=== PATIENT | female | born 1955 | race Caucasian/White ===

== ENCOUNTER 2017-02-11 10:30 | Emergency (ER) | payer OTHER ==
[~2017-02-11] VITALS: Ht 157.5 cm; Wt 61.2 kg
[2017-02-11 10:56] VITALS: BP 130/71
--- NOTE | 2017-02-11 11:47 | NUR ---
SHOULDER SLING PROVIDED. D/C HOME. STABLE CONDITION.
== END 2017-02-11 11:47 | disposition home or self-care (01) ==
LOC: ER 10:32
DX: S42.032A Displaced fracture of lateral end of left clavicle, initial encounter for closed fracture (principal); S09.90XA Unspecified injury of head, initial encounter; R51 Headache; J45.909 Unspecified asthma, uncomplicated; Z88.1 Allergy status to other antibiotic agents; W01.0XXA Fall on same level from slipping, tripping and stumbling without subsequent striking against object, initial encounter; Y99.8 Other external cause status; Y92.89 Other specified places as the place of occurrence of the external cause; Y93.89 Activity, other specified
CPT/HCPCS: 70450; 73030; 99284; A4606 ×2; A6402; Z7610 ×2

== ENCOUNTER 2020-05-09 18:34 | Emergency (ER) | payer OTHER, MEDICAID ==
[~2020-05-09] VITALS: Ht 157.5 cm; Wt 61.2 kg
[2020-05-09 18:56] VITALS: BP 137/94
--- NOTE | 2020-05-09 19:22 | NUR ---
PATIENT CAME TO ER BED 2 C/O FALLING AT HOME ON A ACCOUNTANT TAX ABOUT 1x HOUR AGO. PATIENT STATES THAT SHE FELL ON HER LEFT SIDE AND HIT HER HEAD ON A METAL OBJECT AT HOME. PATIENT HAS A RIGHT MEDIAL MATTA SWELLING AND LEFT ANABAPTISM SWELLING. PATIENT STATES THAT SHE ALSO HAS SHOULDER PAIN. PATIENT IS AAOX4. NO SOB .BREATHING EVENLY AND UNLABORED ON ROOM AIR. CONNECTED TO THE MONITOR.
--- NOTE | 2020-05-09 19:35 | NUR ---
PATIENT TAKEN TO CT.
[2020-05-09] MEDS ORDERED: ACETAMINOPHEN 325 MG TABLET ONE (19:51)
[2020-05-09] MEDS: ACETAMINOPHEN 325 MG TABLET PO ONE (19:59)
--- NOTE | 2020-05-09 20:57 | NUR ---
AMBULATORY WITH A STEADY GAIT.
--- NOTE | 2020-05-09 20:57 | NUR ---
Patient discharged to home in stable condition. Written and verbal after care instructions given. Patient verbalizes understanding of instruction.
== END 2020-05-09 20:59 | disposition home or self-care (01) ==
LOC: ER 18:34
DX: S00.03XA Contusion of scalp, initial encounter (principal); S80.11XA Contusion of right lower leg, initial encounter; S00.83XA Contusion of other part of head, initial encounter; S70.12XA Contusion of left thigh, initial encounter; M19.012 Primary osteoarthritis, left shoulder; J45.909 Unspecified asthma, uncomplicated; Z79.82 Long term (current) use of aspirin; Z88.1 Allergy status to other antibiotic agents; W01.0XXA Fall on same level from slipping, tripping and stumbling without subsequent striking against object, initial encounter; Y93.89 Activity, other specified; Y92.89 Other specified places as the place of occurrence of the external cause; Y99.8 Other external cause status
CPT/HCPCS: 70450-TC; 71045-TC; 73030-TC

== ENCOUNTER 2021-01-25 14:29 | Emergency (ER) | payer OTHER ==
[~2021-01-25] VITALS: Ht 157.5 cm; Wt 61.2 kg
--- NOTE | 2021-01-25 14:29 | NUR ---
PT BIB SELF C/O CHEST WALL AND KNEE PAIN S/P GLF YESTERDAY. PT IS AAOX4, NOT IN RESPIRATORY DISTRESS, V/S STABLE, KEPT RESTED AND COMFORTABLE. WILL CONTINUE TO MONITOR.
--- NOTE | 2021-01-25 14:59 | NUR ---
SEEN AND EXAMINED BY DR. ALMARAZ.
[2021-01-25 15:17] LABS: BASOPHILS % (AUTO) 0.8 % (0.0-2.0); EOSINOPHILS % (AUTO) 2.9 % (0.0-6.0); HEMATOCRIT 34 % (33-45); HEMOGLOBIN 11.3 g/dL (11.5-14.8); LYMPHOCYTES # (AUTO) 2.5 K/uL (0.8-4.8); LYMPHOCYTES % (AUTO) 43.1 % (20.0-44.0); MEAN CORPUSCULAR HGB CONC 34 g/dl (31.0-36.0); MEAN CORPUSCULAR VOLUME 88 fL (82-100); MONOCYTES # (AUTO) 0.5 K/uL (0.1-1.30); MONOCYTES % (AUTO) 8.6 % (2.0-12.0); NEUTROPHILS # (AUTO) 2.6 K/uL (1.8-8.9); NEUTROPHILS % (AUTO) 44.6 % (43.0-81.0); PLATELET COUNT (AUTO) 234 K/uL (150-450); WHITE BLOOD COUNT (AUTO) 5.8 K/uL (4.3-11.0)
[2021-01-25 15:25] LABS: CALCIUM, SERUM 8.6 mg/dL (8.5-10.1); CARBON DIOXIDE 27 mmol/L (21-32); CHLORIDE 107 mmol/L (98-107); CREATININE 0.8 mg/dL (0.6-1.3); GLUCOSE 131 mg/dL (74-106); POTASSIUM 3.7 mmol/L (3.5-5.1); SODIUM SERUM 143 mmol/L (136-145); UREA NITROGEN, BLOOD 12 mg/dL (7-18)
[2021-01-25 17:27] VITALS: BP 135/82
--- NOTE | 2021-01-25 17:27 | NUR ---
Patient discharged to home in stable condition. Written and verbal after care instructions given. Patient verbalizes understanding of instruction.
== END 2021-01-25 17:27 | disposition home or self-care (01) ==
LOC: ER 14:33
DX: S20.211A Contusion of right front wall of thorax, initial encounter (principal); S80.02XA Contusion of left knee, initial encounter; S80.01XA Contusion of right knee, initial encounter; R51.9 Headache, unspecified; D32.9 Benign neoplasm of meninges, unspecified; J45.909 Unspecified asthma, uncomplicated; Z88.1 Allergy status to other antibiotic agents; W01.0XXA Fall on same level from slipping, tripping and stumbling without subsequent striking against object, initial encounter; Y93.89 Activity, other specified; Y92.89 Other specified places as the place of occurrence of the external cause; Y99.8 Other external cause status
CPT/HCPCS: 36415; 70450-TC; 71045-TC; 80048-TC; 84484-TC; 85025-TC

== ENCOUNTER 2021-02-17 09:51 | Emergency (ER) | payer OTHER ==
[~2021-02-17] VITALS: Ht 157.5 cm; Wt 63.5 kg
--- NOTE | 2021-02-17 10:10 | NUR ---
TO ER BED 3, C/O LEFT SHOULDER AND LEFT HIP PAIN S/P FALL LAST TUESDAY, ALSO C/O NECK PAIN, AAOX4, BREATHING EVEN AND NON LABORED. AWAITING MD VERA
--- NOTE | 2021-02-17 11:49 | NUR ---
URINE COLLECTED AND SENT TO LAB
[2021-02-17 12:03] LABS: BILIRUBIN,URINE Negative (NEGATIVE); COLOR,URINE YELLOW (YELLOW); LEUKOCYTE ESTERASE ,URINE Negative (NEGATIVE); NITRITE, URINE Negative (NEGATIVE); PROTEIN,URINE Negative (NEGATIVE); UGLUCOSE Negative (NEGATIVE); UROBILINOGEN,URINE 0.2 EU/dL (0.2)
--- NOTE | 2021-02-17 12:24 | NUR ---
TAKEN TO CT
--- NOTE | 2021-02-17 12:54 | NUR ---
[employer] AT BEDSIDE
[2021-02-17] MEDS ORDERED: ONDANSETRON HCL/PF 4 MG/2 ML VIAL ONE (13:03)
[2021-02-17] MEDS ORDERED: MORPHINE SULFATE INJ 4 MG/ML DISP.SYRIN ONE (13:03)
[2021-02-17] MEDS: ONDANSETRON HCL/PF 4 MG/2 ML VIAL IVP ONE (13:09)
[2021-02-17] MEDS: MORPHINE SULFATE INJ 2 MG/ML DISP.SYRIN IV ONE (13:09)
[2021-02-17 13:11] LABS: BASOPHILS # (AUTO) 0.1 K/uL (0.0-0.2); EOSINOPHILS % (AUTO) 1.9 % (0.0-6.0); HEMATOCRIT 34 % (33-45); HEMOGLOBIN 11.6 g/dL (11.5-14.8); LYMPHOCYTES # (AUTO) 2.7 K/uL (0.8-4.8); LYMPHOCYTES % (AUTO) 40.2 % (20.0-44.0); MEAN CORPUSCULAR HGB CONC 34 g/dl (31.0-36.0); MEAN CORPUSCULAR VOLUME 90 fL (82-100); MONOCYTES # (AUTO) 0.6 K/uL (0.1-1.30); MONOCYTES % (AUTO) 8.4 % (2.0-12.0); NEUTROPHILS # (AUTO) 3.2 K/uL (1.8-8.9); NEUTROPHILS % (AUTO) 48.5 % (43.0-81.0); PLATELET COUNT (AUTO) 223 K/uL (150-450); RED BLOOD CELL COUNT(AUTO) 3.84 MIL/uL (4.0-5.2); WHITE BLOOD COUNT (AUTO) 6.6 K/uL (4.3-11.0)
[2021-02-17] MEDS ORDERED: KETOROLAC TROMETHAMINE INJ 30 MG/ML VIAL ONE (13:13)
[2021-02-17] MEDS: KETOROLAC TROMETHAMINE INJ 60 MG/2 ML VIAL IM ONE (13:17)
[2021-02-17 13:21] LABS: CALCIUM, SERUM 9.2 mg/dL (8.5-10.1); CREATININE 0.8 mg/dL (0.6-1.3); POTASSIUM 4.5 mmol/L (3.5-5.1)
[2021-02-17 13:26] LABS: ALBUMIN 3.7 g/dL (3.4-5.0); BILIRUBIN,DIRECT 0.1 mg/dL (0.0-0.2); BILIRUBIN,TOTAL 0.3 mg/dL (0.2-1.0); TOTAL PROTEIN, SERUM 7.1 g/dL (6.4-8.2)
[2021-02-17] MEDS ORDERED: KETOROLAC TROMETHAMINE INJ 30 MG/ML VIAL IV ONE (13:30)
[2021-02-17 14:10] VITALS: BP 117/70
== END 2021-02-17 14:11 | disposition home or self-care (01) ==
LOC: ER 09:57
DX: S20.229A Contusion of unspecified back wall of thorax, initial encounter (principal); M48.00 Spinal stenosis, site unspecified; M25.512 Pain in left shoulder; J45.909 Unspecified asthma, uncomplicated; K21.9 Gastro-esophageal reflux disease without esophagitis; Z88.1 Allergy status to other antibiotic agents; W07.XXXA Fall from chair, initial encounter; Y93.89 Activity, other specified; Y92.89 Other specified places as the place of occurrence of the external cause; Y99.8 Other external cause status
CPT/HCPCS: 36415; 70450; 71045; 72125; 72131; 73030; 73503; 80048; 80076; 81003; 82550; 85025; 85730; 96372; 99285; J1885; 73502; J2270; J2405

== ENCOUNTER 2022-04-15 11:03 | Emergency (ER) | payer OTHER ==
[~2022-04-15] VITALS: Ht 157.5 cm; Wt 63.5 kg
[2022-04-15 11:11] VITALS: BP 150/54
[2022-04-15] MEDS ORDERED: KETOROLAC TROMETHAMINE INJ 30 MG/ML VIAL ONE (11:21)
[2022-04-15] MEDS ORDERED: KETOROLAC TROMETHAMINE INJ 30 MG/ML VIAL IM ONE (11:30)
[2022-04-15] MEDS ORDERED: KETO10TA2 PO (12:16)
[2022-04-15] MEDS ORDERED: HYDR-4209 PO (12:16)
--- NOTE | 2022-04-15 12:30 | NUR ---
Saran tape done on affected are by EMT- surgical shoe provided. Patient discharged to home in stable condition. Written and verbal after care instructions given. Patient verbalizes understanding of instruction.
== END 2022-04-15 12:42 | disposition home or self-care (01) ==
LOC: ER 11:17
DX: S92.514A Nondisplaced fracture of proximal phalanx of right lesser toe(s), initial encounter for closed fracture (principal); J45.909 Unspecified asthma, uncomplicated; K21.9 Gastro-esophageal reflux disease without esophagitis; Z88.8 Allergy status to other drugs, medicaments and biological substances; Z79.899 Other long term (current) drug therapy; W55.09XA Other contact with cat, initial encounter; Y93.89 Activity, other specified; Y92.89 Other specified places as the place of occurrence of the external cause; Y99.8 Other external cause status
CPT/HCPCS: 99283; 96372; 73630; J1885

== ENCOUNTER 2022-04-26 12:20 | Emergency (ER) | payer OTHER ==
[~2022-04-26] VITALS: Ht 157.5 cm; Wt 63.5 kg
[~2022-04-26 12:20] MED LIST: HYDR-4209 PO; KETO10TA2 PO
[2022-04-26 13:06] VITALS: BP 131/88
--- NOTE | 2022-04-26 13:06 | NUR ---
BIBS C/O 4TH DIGIT ,RIGHT FOOT STILL HURTING,SEEN A WEEK AGO FOR SAME. VITALS ARE WITHIN NORMAL LIMITS. AWAITING MD VERA.
--- NOTE | 2022-04-26 13:26 | NUR ---
Patient discharged to home in stable condition. Written and verbal after care instructions given. Patient verbalizes understanding of instruction.
== END 2022-04-26 13:27 | disposition home or self-care (01) ==
LOC: ER 12:23
DX: S90.31XA Contusion of right foot, initial encounter (principal); J45.909 Unspecified asthma, uncomplicated; K21.9 Gastro-esophageal reflux disease without esophagitis; Z88.8 Allergy status to other drugs, medicaments and biological substances; Z79.899 Other long term (current) drug therapy; X58.XXXA Exposure to other specified factors, initial encounter; Y93.89 Activity, other specified; Y92.89 Other specified places as the place of occurrence of the external cause; Y99.8 Other external cause status

== ENCOUNTER 2022-06-23 09:01 | Emergency (ER) | payer OTHER ==
[~2022-06-23] VITALS: Ht 157.5 cm; Wt 63.5 kg
--- NOTE | 2022-06-23 09:06 | NUR ---
DR ALMARAZ AT BEDSIDE
[2022-06-23] MEDS ORDERED: PIPERACILLIN /TAZOBACTAM 3.375 G in IV D5W 50 ML IV ONE (09:30)
[2022-06-23] MEDS ORDERED: PIPERACILLIN /TAZOBACTAM 3.375 G VIAL IV ONE (09:32)
[2022-06-23 09:36] LABS: BASOPHILS % (AUTO) 0.4 % (0.0-2.0); EOSINOPHILS % (AUTO) 1.6 % (0.0-6.0); HEMATOCRIT 38 % (33-45); HEMOGLOBIN 12.3 g/dL (11.5-14.8); LYMPHOCYTES # (AUTO) 1.7 K/uL (0.8-4.8); LYMPHOCYTES % (AUTO) 21.6 % (20.0-44.0); MEAN CORPUSCULAR HGB CONC 33 g/dl (31.0-36.0); MEAN CORPUSCULAR VOLUME 87 fL (82-100); MONOCYTES # (AUTO) 0.6 K/uL (0.1-1.30); MONOCYTES % (AUTO) 7.8 % (2.0-12.0); NEUTROPHILS # (AUTO) 5.4 K/uL (1.8-8.9); NEUTROPHILS % (AUTO) 68.6 % (43.0-81.0); PLATELET COUNT (AUTO) 206 K/uL (150-450); RED BLOOD CELL COUNT(AUTO) 4.32 MIL/uL (4.0-5.2); WHITE BLOOD COUNT (AUTO) 7.8 K/uL (4.3-11.0)
[2022-06-23 09:49] LABS: CALCIUM, SERUM 9.3 mg/dL (8.5-10.1); CREATININE 0.9 mg/dL (0.6-1.3); POTASSIUM 3.5 mmol/L (3.5-5.1)
[2022-06-23 11:21] VITALS: BP 126/82
== END 2022-06-23 11:22 | disposition home or self-care (01) ==
LOC: ER 09:07
DX: S61.451A Open bite of right hand, initial encounter (principal); J45.909 Unspecified asthma, uncomplicated; K21.9 Gastro-esophageal reflux disease without esophagitis; Z88.8 Allergy status to other drugs, medicaments and biological substances; Z79.899 Other long term (current) drug therapy; W55.01XA Bitten by cat, initial encounter; Y93.89 Activity, other specified; Y92.89 Other specified places as the place of occurrence of the external cause; Y99.8 Other external cause status
CPT/HCPCS: 99284; 96365; 85025; 80048; 87040 ×2; 83605; 36415; J2543; J7060

== ENCOUNTER 2023-07-03 21:58 | Emergency (ER) | payer OTHER ==
[~2023-07-03] VITALS: Ht 165.1 cm; Wt 73.5 kg
[2023-07-03 22:09] VITALS: TEMP 98
[2023-07-04 00:34] VITALS: BP 127/73; O2SAT 98
== END 2023-07-04 00:35 | disposition home or self-care (01) ==
LOC: ER 21:59
DX: D32.0 Benign neoplasm of cerebral meninges (principal); M25.571 Pain in right ankle and joints of right foot; M25.561 Pain in right knee; M25.551 Pain in right hip; J45.909 Unspecified asthma, uncomplicated; K21.9 Gastro-esophageal reflux disease without esophagitis; Z88.8 Allergy status to other drugs, medicaments and biological substances; W18.09XA Striking against other object with subsequent fall, initial encounter; Y93.89 Activity, other specified; Y92.89 Other specified places as the place of occurrence of the external cause; Y99.8 Other external cause status
CPT/HCPCS: 70450-TC; 73030-TC; 73080-TC; 73502; 73564-TC; 73610-TC; 73630-TC

== ENCOUNTER 2024-03-09 00:58 | Emergency (ER) | payer OTHER ==
[~2024-03-09] VITALS: Ht 157.5 cm; Wt 74.8 kg
[2024-03-09 01:53] LABS: BASOPHILS # (AUTO) 0.1 K/uL (0.0-0.2); BASOPHILS % (AUTO) 0.7 % (0.0-2.0); EOSINOPHILS # (AUTO) 0.2 K/uL (0.0-0.7); EOSINOPHILS % (AUTO) 2.2 % (0.0-6.0); HEMATOCRIT 36 % (33-45); HEMOGLOBIN 12.2 g/dL (11.5-14.8); LYMPHOCYTES # (AUTO) 3.5 K/uL (0.8-4.8); LYMPHOCYTES % (AUTO) 41.1 % (20.0-44.0); MEAN CORPUSCULAR HEMOGLOBIN 29 PG (26.0-33.0); MEAN CORPUSCULAR HGB CONC 34 g/dl (31.0-36.0); MEAN CORPUSCULAR VOLUME 87 fL (82-100); MONOCYTES # (AUTO) 0.8 K/uL (0.1-1.30); MONOCYTES % (AUTO) 8.7 % (2.0-12.0); NEUTROPHILS # (AUTO) 4.1 K/uL (1.8-8.9); NEUTROPHILS % (AUTO) 47.3 % (43.0-81.0); PLATELET COUNT (AUTO) 191 K/uL (150-450); RED BLOOD CELL COUNT(AUTO) 4.19 MIL/uL (4.0-5.2); RED CELL DISTRIBUTION WIDTH 14.9 % (11.5-15.0); WHITE BLOOD COUNT (AUTO) 8.6 K/uL (4.3-11.0)
[2024-03-09 02:11] LABS: CALCIUM, SERUM 9.2 mg/dL (8.5-10.1); CREATININE 1.2 mg/dL (0.6-1.3); POTASSIUM 4.2 mmol/L (3.5-5.1)
[2024-03-09 02:18] LABS: ALBUMIN 3.8 g/dL (3.4-5.0); BILIRUBIN,TOTAL 0.2 mg/dL (0.2-1.0); TOTAL PROTEIN, SERUM 7.2 g/dL (6.4-8.2)
[2024-03-09 02:22] LABS: APPEARANCE,URINE CLEAR (CLEAR); BILIRUBIN,URINE NEGATIVE (NEGATIVE); BLOOD, URINE NEGATIVE Ery/uL (NEGATIVE); COLOR,URINE YELLOW (YELLOW); KETONES,URINE TRACE mg/dL (NEGATIVE); LEUKOCYTE ESTERASE ,URINE NEGATIVE (NEGATIVE); NITRITE, URINE NEGATIVE (NEGATIVE); PH,URINE 5.5 (5.0-8.0); PROTEIN,URINE NEGATIVE (NEGATIVE); UGLUCOSE NEGATIVE (NEGATIVE); UROBILINOGEN,URINE 0.2 EU/dL (0.2)
[2024-03-09 02:45] LABS: ADD URINE CULTURE NO; BACTERIA,URINE 1+ /HPF (None Seen); RBC,URINE 0-2 /HPF (0-2); SQUAMOUS EPITHELIAL CELL,UR 0-2 /HPF (None Seen); WBC,URINE NONE SEEN /HPF (0-3)
[2024-03-09] MEDS ORDERED: SULF1TAB48 PO (02:46)
[2024-03-09] MEDS ORDERED: CEPH500T PO (02:46)
[2024-03-09] MEDS ORDERED: MUPI22OI7 TP (02:46)
[2024-03-09 03:08] VITALS: BP 136/73; TEMP 98.6; O2SAT 98
== END 2024-03-09 03:08 | disposition home or self-care (01) ==
LOC: ER 01:50
DX: L03.116 Cellulitis of left lower limb (principal); L03.115 Cellulitis of right lower limb; K21.9 Gastro-esophageal reflux disease without esophagitis; J45.909 Unspecified asthma, uncomplicated; Z88.1 Allergy status to other antibiotic agents
CPT/HCPCS: 36415; 80053-TC; 81001; 85025-TC

== ENCOUNTER 2024-04-11 20:28 | Emergency (ER) | payer OTHER ==
[~2024-04-11] VITALS: Ht 157.5 cm; Wt 65.8 kg
[~2024-04-11 20:28] MED LIST changes: +CEPH500T PO; +MUPI22OI7 TP; +SULF1TAB48 PO
[2024-04-11] MEDS ORDERED: LIDOCAINE 5% (PATCH) 1 EA PATCH TP ONE (21:30)
[2024-04-11] MEDS ORDERED: IBUPROFEN 600 MG TABLET ONE (21:31)
[2024-04-11] MEDS: LIDOCAINE 5% (PATCH) 1 EA PATCH TP STA (22:00)
[2024-04-11] MEDS: IBUPROFEN 600 MG TABLET PO ONE (22:00)
[2024-04-11] MEDS ORDERED: HYDR-4303 PO (22:03)
[2024-04-11] MEDS ORDERED: CYCL5TAB PO (22:03)
[2024-04-11] MEDS ORDERED: IBUP-1955 PO (22:03)
[2024-04-11] MEDS ORDERED: LIDO30AD10 TP (22:03)
[2024-04-11 22:56] VITALS: BP 135/75; TEMP 98.2; O2SAT 99
== END 2024-04-11 22:50 | disposition home or self-care (01) ==
LOC: ER 20:31
DX: S70.12XA Contusion of left thigh, initial encounter (principal); R07.89 Other chest pain; M25.552 Pain in left hip; M25.512 Pain in left shoulder; M51.369 Other intervertebral disc degeneration, lumbar region without mention of lumbar back pain or lower extremity pain; K21.9 Gastro-esophageal reflux disease without esophagitis; J45.909 Unspecified asthma, uncomplicated; Z88.1 Allergy status to other antibiotic agents; W06.XXXA Fall from bed, initial encounter; Y93.89 Activity, other specified; Y92.89 Other specified places as the place of occurrence of the external cause; Y99.8 Other external cause status
CPT/HCPCS: 71100-TC; 72100-TC; 73502

== ENCOUNTER 2024-09-12 08:41 | Emergency (ER) | payer MEDICARE, OTHER ==
[~2024-09-12] VITALS: Ht 157.5 cm; Wt 68.9 kg
[~2024-09-12 08:41] MED LIST changes: +CYCL5TAB PO; +HYDR-4303 PO; +IBUP-1955 PO; +LIDO30AD10 TP
[2024-09-12] MEDS: LIDOCAINE 5% (PATCH) 1 EA PATCH TP STA (09:03)
[2024-09-12] MEDS ORDERED: ACETAMINOPHEN 325 MG TABLET ONE (09:57)
[2024-09-12] MEDS ORDERED: LIDOCAINE 5% (PATCH) 1 EA PATCH TP ONE (09:57)
[2024-09-12] MEDS: ACETAMINOPHEN 325 MG TABLET PO ONE (10:17)
[2024-09-12 12:00] VITALS: BP 122/60; TEMP 97.8; O2SAT 97
== END 2024-09-12 12:24 | disposition home or self-care (01) ==
LOC: ER 08:46
DX: S16.1XXA Strain of muscle, fascia and tendon at neck level, initial encounter (principal); S29.012A Strain of muscle and tendon of back wall of thorax, initial encounter; S46.811A Strain of other muscles, fascia and tendons at shoulder and upper arm level, right arm, initial encounter; S66.911A Strain of unspecified muscle, fascia and tendon at wrist and hand level, right hand, initial encounter; S76.011A Strain of muscle, fascia and tendon of right hip, initial encounter; R51.9 Headache, unspecified; S86.911A Strain of unspecified muscle(s) and tendon(s) at lower leg level, right leg, initial encounter; Z88.1 Allergy status to other antibiotic agents; Z79.899 Other long term (current) drug therapy; M50.30 Other cervical disc degeneration, unspecified cervical region; W01.0XXA Fall on same level from slipping, tripping and stumbling without subsequent striking against object, initial encounter; Y93.89 Activity, other specified; Y92.512 Supermarket, store or market as the place of occurrence of the external cause; Y99.8 Other external cause status
CPT/HCPCS: 70450-TC; 72125-TC; 73030-TC; 73080-TC; 73110; 73502; 73564-TC

== ENCOUNTER 2025-03-04 15:34 | Emergency (ER) | payer MEDICARE, OTHER ==
[~2025-03-04] VITALS: Ht 157.5 cm; Wt 63.5 kg
[2025-03-04] MEDS ORDERED: ACETAMINOPHEN ES 500 MG TABLET ONE (17:07)
[2025-03-04] MEDS ORDERED: KETOROLAC TROMETHAMINE INJ 30 MG/ML VIAL ONE (17:07)
[2025-03-04] MEDS: ACETAMINOPHEN ES 500 MG TABLET PO ONE (17:53)
[2025-03-04] MEDS: KETOROLAC TROMETHAMINE INJ 30 MG/ML VIAL IM ONE (17:53)
[2025-03-04 21:46] VITALS: BP 134/64; O2SAT 98
== END 2025-03-04 21:46 | disposition home or self-care (01) ==
LOC: ER 15:40
DX: S60.221A Contusion of right hand, initial encounter (principal); S80.02XA Contusion of left knee, initial encounter; S70.12XA Contusion of left thigh, initial encounter; M25.552 Pain in left hip; M54.50 Low back pain, unspecified; M79.642 Pain in left hand; K21.9 Gastro-esophageal reflux disease without esophagitis; J45.998 Other asthma; Z86.011 Personal history of benign neoplasm of the brain; Z88.1 Allergy status to other antibiotic agents; W01.0XXA Fall on same level from slipping, tripping and stumbling without subsequent striking against object, initial encounter; Y93.89 Activity, other specified; Y92.89 Other specified places as the place of occurrence of the external cause; Y99.8 Other external cause status
CPT/HCPCS: 99285; 73700; 96372; 73521; 73562; 73130; 73030; 73110; J1885

== ENCOUNTER 2025-03-06 13:30 | Emergency (ER) | payer OTHER ==
[~2025-03-06] VITALS: Ht 162.6 cm; Wt 65.8 kg
[2025-03-06 13:40] VITALS: BP 130/62; TEMP 97.9
[2025-03-06] MEDS ORDERED: ACETAMINOPHEN ES 500 MG TABLET ONE (14:31)
[2025-03-06] MEDS: ACETAMINOPHEN ES 500 MG TABLET PO ONE (14:32)
[2025-03-06 14:54] VITALS: O2SAT 99
== END 2025-03-06 14:56 | disposition home or self-care (01) ==
LOC: ER 13:34
DX: M25.561 Pain in right knee (principal); M25.551 Pain in right hip; K21.9 Gastro-esophageal reflux disease without esophagitis; J45.998 Other asthma; Z86.011 Personal history of benign neoplasm of the brain; Z88.1 Allergy status to other antibiotic agents; W01.198A Fall on same level from slipping, tripping and stumbling with subsequent striking against other object, initial encounter; Y93.89 Activity, other specified; Y92.89 Other specified places as the place of occurrence of the external cause; Y99.8 Other external cause status
CPT/HCPCS: 73502; 73564-TC